=== PATIENT | female | born 1975 | race Caucasian/White ===

== ENCOUNTER 2024-06-08 07:57 | Day surgery (SDC) | payer MEDICAID, SELFPAY ==
--- NOTE | 2024-06-06 18:18 | PCM.HP.BLA ---
History and Physical Date of Admission: 06/08/24 HPI: The patient is a 48 year old female presenting for pre-operative visit. She is scheduled for Hysteroscopy D&C and possible polyp resection, for postmenopausal bleeding and thickened endometrium on pelvic ultrasound on 06/08/24. Procedure discussed along with risks, benefits and complications. Other alternatives discussed for management. Consent form signed? Yes. PAST MEDICAL HISTORY PAST MEDICAL HISTORY Diagnosis Date ? Chronic anticoagulation ? Chronic pain syndrome ? Clotting disorder (HCC) ? COPD (chronic obstructive pulmonary disease) (HCC) ? DUENAS (dyspnea on exertion) ? GERD (gastroesophageal reflux disease) ? History of atrial fibrillation ? History of pulmonary embolism 2017 ? History of pulmonary embolism 2019 ? History of pulmonary hypertension 2016 On ambrisentan for 4 years and off for 2 years ? History of respiratory failure 2017 was on supplemental oxygen for a few years ? HTN (hypertension) ? Hypermobility arthralgia ? Lupus (HCC) ? Marijuana use Takes it orally ? Nephrolithiasis ? Obesity ? UMESH (obstructive sleep apnea) ? Scleroderma (HCC) 2019 ? Syncope and collapse PAST SURGICAL HISTORY PAST SURGICAL HISTORY Procedure Laterality Date ? LAPAROSCOPIC TUBAL LIGATION/RING/CLIP 01/29/2008 ? PAST SURGICAL HISTORY OF 4 c-sections ? PAST SURGICAL HISTORY OF exploratory surgery ? PAST SURGICAL HISTORY OF removal of 2 cysts on bilateral ovaries ? THERMAL ENDOMETRIAL ABLATION 01/29/2008 ? TONSILLECTOMY & ADENOIDECTOMY <AGE 10 CURRENT MEDICATIONS Current Outpatient Medications Medication Sig Dispense Refill ? phenazopyridine (PYRIDIUM) 200 mg tablet Take 200 mg by mouth. ? fluticasone (FLONASE) 50 mcg/actuation nasal spray Use 2 Sprays in the nose. ? lidocaine (SALONPAS) 4 % patch Apply 1 Patch as directed every 24 hours. ? miconazole 2 % powder Apply 1 application to affected area as needed (rash). 85 g 1 ? estradiol (ESTRACE) 0.01 % (0.1 mg/gram) vaginal cream Use 1 g vaginally two times a week. 42.5 g 1 ? CPAP/BIPAP/OTHER Type .CPAPSettings into a note to see current settings/supplies/DME information. 1 Each 0 ? GLUTAMINE ORAL Take 500 mg by mouth two times a day. ? multivitamin (VITAMIN DAILY ORAL) Take 5,000 Units by mouth once daily. Vitamin d ? Magnesium 200 mg tab Take 225 mg by mouth two times a day. ? enzymes,digestive (DIGESTIVE ENZYMES ORAL) Take by mouth two times a day. ? docosahexaenoic acid/epa (FISH OIL ORAL) Take by mouth once daily. ? furosemide (LASIX) 40 mg tablet Take 1 tablet by mouth twice daily. ? spironolactone (ALDACTONE) 25 mg tablet Take 50 mg by mouth two times a day. ? potassium chloride 20 mEq TbER Take 1 tablet by mouth twice daily. ? dilTIAZem CD (CARTIA XT) 180 mg 24 hr capsule Take 1 capsule by mouth twice daily. ? tiZANidine (ZANAFLEX) 4 mg tablet three times a day. ? famotidine (PEPCID) 20 mg tablet Take 2 tablets by mouth daily at bedtime. ? omeprazole (PRILOSEC) 40 mg capsule once daily. ? hydrOXYzine pamoate (VISTARIL) 50 mg capsule once daily. ? DULoxetine (CYMBALTA) 60 mg capsule once daily. ? XARELTO 20 mg tablet once daily. ? metoprolol succinate ER (TOPROL XL) 25 mg 24 hr tablet Take 0.5 tablets by mouth once daily. ? prucalopride (MOTEGRITY) 2 mg tab tablet Take 2 mg by mouth once daily. bedtime ? quetiapine fumarate(SEROQUEL 25 MG TAB) Take 100 mg by mouth daily at bedtime. Pt takes two tablets at bedtime 0 ? gabapentin(NEURONTIN 100 MG CAP) Take three(3) capsules in a.m., three capsules at noon; and 6 capsules at night. (Patient taking differently: Take 400 mg by mouth three times a day. Pt taking 2 400 mg tablets three times a day) 180 0 ? metoclopramide HCl (REGLAN) 10 mg tablet Take 1 tablet 4 times a day by oral route. ? melatonin 10 mg cap Take 10 mg by mouth at bedtime as needed. ? melatonin 10 mg cap Take 1 capsule by mouth once daily. No current facility-administered medications for this visit. ALLERGIES: Cortisolv [[id number]-Sjx-Krjda] and Morphine PERSONAL HISTORY: SOCIAL HISTORY Social History Tobacco Use ? Smoking status: Never Passive exposure: Current ? Smokeless tobacco: Never ? Tobacco comments: Family of 4-chain smokers in home. Substance Use Topics ? Alcohol use: Not Currently ? Drug use: Yes Types: Marijuana Comment: medical FAMILY HISTORY: FAMILY HISTORY FAMILY HISTORY Problem Relation Age of Onset ? Diabetes Maternal Grandmother ? Arthritis Paternal Grandmother Rheumatoid arthritis REVIEW OF SYMPTOMS: GENERAL: denies fevers or chills ENDOCRINOLOGY: has not been on steroids Cardiology : denies palpitations or chest pain Respiratory: denies SOB or cough Hematology: denies history of prolonged bleeding or easy bruising or VTE Allergy: Denies history of personal or family history of allergy to anesthesia PHYSICAL EXAMINATION: VITALS: Blood pressure 120/70, weight 92.1 kg (203 lb), last menstrual period 01/29/2008. GENERAL: The patient is well nourished, well hydrated in no acute distress. , The patient is oriented to time, place, and person. NECK: Supple. No lynphadenopathy, normal thyroid, no thyromegaly. LUNGS: Clear to auscultation bilaterally. no wheezes, rhonchi or rales HEART: Regular rate and rhythm, Normal heart sounds, and No murmurs or gallops Pelvic US 04/27/24: Normal appearing anteverted uterus that measures 68 mm x 33 mm x 36 mm. Heterogeneous myometrium. 3D and tranverse views demonstrate a septate endometrial contour. Less likely, the endometrium could be splayed due to incomplete coverage at endometrial ablation. Endometrium measures 1.5 mm on right and 1.9 mm on left. Both ovaries are visualized and appear normal. No adnexal masses were observed. There is no free fluid visualized in the peritoneal cavity. Recommendations Recommend hysteroscopy with video-directed D&C to sample each endometrial cavity due to low reliability of endometrial sampling in this situation. IMPRESSION: PMB, thickenened endometrium on pelvic US, complex medical history, on anticoagulation PLAN: The risks/benefits/alternatives and personal involved for the planned hysteroscopy D&C with possible polyp resection were reviewed with the patient. Her questions were answered to her satisfaction and she desires to proceed. Consent was signed. I reviewed with her postop instructions and expectations. I have reviewed and updated past medical and surgical history, medications and allergies This h&p was completed in my office on 05/26/24
[2024-06-08] VITALS (9 sets, daily range): BP systolic 113–142; BP diastolic 72–84; PULSE 66–88; RESP 12–18; TEMP 36.3–36.9; O2SAT 91–97; BMI 38.0
--- NOTE | 2024-06-08 | EMB_PTH ---
PATIENT: BARBIE ANTHONY [place] [facility] [id number] AGE/SX: 48/F ROOM: RE06/08/[address]: Dr. Maryam Live MD : 1975 BED: DIS: 06/08/2024 SPEC #: [id number] RECD: 06/08/24 13:12 STATUS: MARTELL LORIE #: [id number] WILBER: 06/08/24 00:[address]: Maryam Live DEPT: SURGICAL PATHOLOGY RECD BY: Cale Quigley Tissues: Endometrium, NOS Procedures: Surgery Specimen Level IV HEADER OPERATION: Hysteroscopy, D&C PRE-OP DIAGNOSIS: Post menopausal bleeding thickened endometrium on pelvic ultrasound, complex medical history, on anticoagulation TISSUE SUBMITTED: Endometrial curettings MICROSCOPIC DIAGNOSIS Endometrium, curettings: Scant strips of benign superficial glandular and squamous mucosa. AM 06/09/2024 MICROSCOPIC DESCRIPTION Slides are reviewed. GROSS DESCRIPTION Received in fixative is one container labeled with the patient's name and designated Endometrial curettings. The specimen consists of multiple irregular fragments of hemorrhagic soft tissue that in aggregate measure 1.5 x 0.5 x <0.1 cm. The specimen is totally submitted in one cassette. 06/08/2024 TC:5 CPT:37977
[2024-06-08 08:26] LABS: Internal QC Validated? YES +Cl - CLEAR BKGD; Pregnancy, Urine Negative Negative
[2024-06-08 08:27] LABS: Record Kit Lot#,Urine Preg 869294
[2024-06-08] MEDS: Acetaminophen 500 MG Tablet 1000 MG PO (08:47)
[2024-06-08 08:53] LABS: Hematocrit 35.8 % (37-47); Hemoglobin 11.9 g/dL (12.0-15.0); Mean Corp Hgb Conc 33.2 g/dL (32-36); Mean Corpuscular Hgb 29.8 pg (27.0-32.0); Mean Corpuscular Volume 89.7 fL (81-99); Mean Platelet Vol. 9.8 fl (6.2-12.0); Platelet Count 327 K/mm3 (150-450); RBC Distribution Width CV 14.2 % (11.6-14.6); RBC Distribution Width SD 46.6 fl (35.1-43.9); Red Blood Count 3.99 M/mm3 (4.2-5.4)
--- NOTE | 2024-06-08 08:55 | PCM.PRE.AN2 ---
ASA Classification* ASA Classification ASA Classification: 2 Assessment & Plan Anesthesia* Anesthesia Assessment Anesthesia Assessment: Discussed sedation and/or anesthesia options, risks, benefits, and alternatives with patient/parents/legal guardian/POA. Questions invited. The patient/parents/legal guardian/POA seems to understand and agrees to proceed with anesthesia plan. Reviewed the physical assessment, medical history, allergy history and patient home medications list prior to surgery/procedure/anesthetic and documented any changes. Performed airway and anesthesia risk assessments. Anesthesia Type Anesthesia Type: MAC Anesthesia Focused Assessment* Temperature: 97.3 F Pulse Rate: 66 Blood Pressure: 113/79 Respiratory Rate: 12 Pulse Ox: 97 Airway Assessment Mouth opens: >3 cm Mallampati Score: II Focused Labs Anesthesia Preop lab: CBC WBC 6.0 K/mm3 (4.4-11.0) 06/08/24 08:40 RBC 3.99 M/mm3 (4.2-5.4) L 06/08/24 08:40 Hgb 11.9 g/dL (12.0-15.0) L 06/08/24 08:40 Hct 35.8 % (37-47) L 06/08/24 08:40 Plt Count 327 K/mm3 (150-450) 06/08/24 08:40 CHEMISTRY Potassium Pending 06/08/24 08:40 Sodium Pending 06/08/24 08:40 BUN Pending 06/08/24 08:40 Creatinine Pending 06/08/24 08:40 Glucose Pending 06/08/24 08:40 COAG Urine Test Negative Negative 06/08/24 08:15 Pre-Assessment Diagnosis/Proposed Procedure Planned Operative Procedure(s): HYSTEROSCOPY D&C WITH POSS RESECTION Anesthesia History Anesthesia History - heating and air conditioning mechanic: Anesthesia History - heating and air conditioning mechanic Hx Hospitalization Yes: 04/2024 FOR KIDNEY 06/05/24 09:25 INFECTION Any Problems With Anesthesia No 06/05/24 09:25 Cholinesterase deficiency No 06/05/24 09:25 You/Your Family Experience No 06/05/24 09:25 fever (hyperthermia) with Relationship Recent Exposure to Contagious No 06/08/24 08:42 Disease Does patient have nerve No 06/05/24 09:25 stimulator Patient instructed to have device shut off --Does patient have Pacemaker No 06/08/24 08:42 or ICD? When Was Last Pacemaker Check QUESTION #4 FULL TEXT: You/Your Family Experience fever (hyperthermia) with Anesthesia Last Oral Intake Last Oral intake: Last Oral Intake NPO since 21:00 06/08/24 08:42 Meds taken in AM with sips of No 06/08/24 08:42 water? Meds patient instructed to take am of surgery PONV PONV - heating and air conditioning mechanic: PONV - heating and air conditioning mechanic Female Yes 06/05/24 09:25 HX of Motion Sickness No 06/05/24 09:25 HX of N/V After Surgery No 06/05/24 09:25 Non-Smoker Yes 06/05/24 09:25 Duration of Surgery greater No 06/05/24 09:25 than 60 minutes Number of Risk Factors 2 06/05/24 09:25 PONV Score Moderate Risk 06/05/24 09:25 Height & Weight Height & Weight: Anesthesia: Height & Weight Height 5 ft 1 in 06/08/24 08:42 Weight: 91.2 kg 06/08/24 08:42 Body Mass Index (BMI) 38.0 06/08/24 08:42 Respiratory Assessment Respiratory Assessment - heating and air conditioning mechanic: Respiratory Tract Infection Hx - heating and air conditioning mechanic Hx Respiratory Tract Infection No 06/05/24 09:25 STOP Sleep Apnea STOP Sleep Apnea - heating and air conditioning mechanic: STOP Sleep Apnea - heating and air conditioning mechanic Hx Hypertension Yes: CONTROLLED WITH MED/ 06/05/24 09:25 HYPOTENSION Hx Sleep Apnea Yes 06/05/24 09:25 CPAP No 06/05/24 09:25 BIPAP Yes 06/05/24 09:25 Do you snore loudly (louder than talking or can be heard Do you often feel tired/ fatigued/ sleepy during daytime? Has anyone observed you stop breathing during sleep? STOP Results Positive 06/05/24 09:25 QUESTION #5 FULL TEXT : Do you snore loudly (louder than talking or can be heard through closed doors)? Tobacco Use History Tobacco Use History - heating and air conditioning mechanic: Tobacco Use History - heating and air conditioning mechanic Tobacco Use Smoking Status Never smoker 06/05/24 09:25 Hx Tobacco Use No 06/05/24 09:25 Years Smoking Packs Smoked per Day Smoking Cessation Date was within the last 15 years Hx Smoking Cessation Date Hx Smoking Cessation Counseling Hematologic Medial History Hematologic Hx - heating and air conditioning mechanic: Hematologic Medical Hx - photovoltaic technician Hx of Blood Transfusion Yes 06/05/24 09:25 Hx of Transfusion in last 3 No 06/05/24 09:25 Months Date of Last Transfusion (if within last 3 months) Ever experience any problems No 06/05/24 09:25 with transfusion(s)? Specify any problems Hx of Preganancy in last 3 No 06/05/24 09:25 Months Nurse Filling Out Transfusion DSCHRIBER 06/05/24 09:25 & Questions: Date: 06/05/24 06/05/24 09:25 Time: 09:28 06/05/24 09:25 Patient unable to answer at this time (ie. confused, unrespo /Reproduction History /Reproductive History - heating and air conditioning mechanic: /Reproductive Hx- heating and air conditioning mechanic Hx Now No 06/05/24 09:25 Gestational Age (in weeks): EDC: Hx Hx Para Hx Section SAB No 06/05/24 09:25 Active Medications Active Medications: Current Medications Generic Name Dose Route Start Last Admin Trade Name Freq PRN Reason Stop Dose Admin Acetaminophen 1,000 mg 06/08/24 09:20 06/08/24 08:47 Acetaminophen 500 Mg Tablet PO 06/08/24 09:21 1,000 mg PREOP ONE Administration PFS Medical History Scleroderma of esophagus PTSD (post-traumatic stress disorder) Depression Anxiety Marijuana use Thyroid disease Arthritis Bladder disease Nephrosis Anemia Easy bruising Restless legs Back pain Migraine headache Injury of head and neck Stroke/cerebrovascular accident Lupus Adonis-Danlos syndrome Syncope Blackout Difficulty swallowing History of hiatal hernia History of IBS History of diverticulitis Gastric reflux Non-smoker BiPAP (biphasic positive airway pressure) dependence Shortness of breath on exertion Leg cramps History of pain when walking Hypertension History of Holter monitoring History of echocardiogram History of stress test Cardiology follow-up encounter History of CHF (congestive heart failure) History of irregular heartbeat Pulmonary embolism Chest pain Home Medications ?Medication ?Instructions ?Recorded ?Last Taken ?Type MARSHMELLOW ROOT 1,300 mg PO DAILY 06/05/24 Unknown History cholecalciferol (vitamin D3) 50 50 mcg PO DAILY 06/05/24 Unknown History mcg (2,000 unit) tablet (Vitamin D3) diltiazem HCl 180 mg 180 mg PO BID 06/05/24 Unknown History capsule,extended release 24 hr duloxetine 60 mg capsule,delayed 60 mg PO QHS 06/05/24 Unknown History release furosemide 40 mg tablet 40 mg PO BID 06/05/24 Unknown History gabapentin 800 mg tablet 800 mg PO TID 06/05/24 Unknown History glutamine 500 mg capsule 500 mg PO BID 06/05/24 Unknown History metoprolol succinate 25 mg 12.5 mg PO QHS 06/05/24 06/06/24 History tablet,extended release 24 hr midodrine 10 mg tablet 20 mg PO QHS 06/05/24 Unknown History omeprazole 40 mg capsule,delayed 40 mg PO QHS 06/05/24 Unknown History release potassium chloride 20 mEq 20 meq PO BID 06/05/24 Unknown History tablet,extended release promethazine 25 mg tablet 25 mg PO Q8H PRN PRN nausea and 06/05/24 Unknown History vomiting prucalopride 2 mg tablet 2 mg PO QHS 06/05/24 Unknown History (Motegrity) quetiapine 100 mg tablet 100 mg PO BID 06/05/24 Unknown History rivaroxaban 20 mg tablet (Xarelto) 20 mg PO QHS 06/05/24 06/06/24 History spironolactone 50 mg tablet 50 mg PO BID 06/05/24 Unknown History tizanidine 4 mg tablet 8 mg PO BID 06/05/24 Unknown History turmeric 450 mg-turmeric root 2 cap PO BID 06/05/24 Unknown History extract 50 mg capsule Allergy/AdvReac Type Severity Reaction Status Date / Time cortisone Allergy Intermediate Swelling Verified 06/08/24 08:39 adhesive tape AdvReac Intermediate Rash Verified 06/08/24 08:39 corn AdvReac Intermediate Nausea/Vom/ Verified 06/08/24 08:39 Diarrhea Surgical History History of cardiac catheterization Hx of surgical procedure Hx of colonoscopy History of esophagogastroduodenoscopy (EGD) Hx of lithotripsy Hx laparoscopic cholecystectomy History of tonsillectomy Hx of exploratory laparotomy History of Social History Smoking Status: Never smoker Review of Systems (Anesthesia) ROS Narrative System reviewed and no additional complaints, except as documented.
[2024-06-08 09:09] LABS: ALB/GLOB Ratio 1.2 RATIO (0.9-2.4); AST(SGOT) 12 U/L (15-37); Alanine Aminotransfer ALT/SGPT 26 U/L (13-56); Albumin, Serum 4.1 g/dL (3.2-5.0); Alkaline Phosphatase 78 U/L (45-117); Anion Gap 9 (5-15); BUN 22 mg/dL (7-18); BUN/Creat Ratio 20.6 RATIO (10-20); Chloride 104 mmol/L (98-107); Creatinine, Serum 1.07 mg/dL (0.55-1.02); EST Glomerular Filtration Rate 58 mL/min (>60); Est Glom Filt Rate - Afr Amer 70 mL/min (>60); Globulin 3.5 g/dL (2.2-4.2); Glucose 104 mg/dL (74-106); Potassium 3.9 mmol/L (3.5-5.1); Protein, Total 7.6 g/dL (6.4-8.2); Sodium Level 137 mmol/L (136-145)
[2024-06-08] MEDS: Vasopressin 20 UNITS/ML Vial (11:03)
--- NOTE | 2024-06-08 11:27 | OP.PCM_ITS ---
Report of Operation Date of Procedure: 06/08/24 Pre-Operative Diagnosis: PMB, thickened endoemtrium on US Post-Operative Diagnosis: same Surgery/Procedure Performed:: Hysteroscopsy D&C Description of Surgical Findings:: normal cervix and vagina, no endoemtrial masses noted Surgeon: Maryam Live digital marketing intern: Julianne Gu MS4 Type of Anesthesia: MAC Anesthesiologist: Suzan Burgos Special Medications: none Specimen's removed: endoemtrial curettings Drains: none Estimated Blood Loss (mL): 10 Fluids Replaced: 0 Description of Procedure: The patient was taken to the OR where she was prepped and draped in dorsal lithotomy position. The weighted speculum was placed in the vagina and the anterior lip of the cervix was grasped with a single-tooth tenaculum. A para cervical block was administered with 5 units of vasopressin diluted in normal saline. The cervix was dilated serially with Hegar dilators. 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 It was this versus a false track. However did appear to be a tubal ostia at the end. Clinically I would say I was in the left horn of the uterus. Despite several attempts at redilation and repositioning the camera pinching off the cervix with a tenaculum so the fluid leak and visualization clear back to the external cervical os I could not find another track to enter the other horn of the uterus. A gentle sharp curettage was done of the form that I was in. There were no focal findings and it appeared atrophic. The hysteroscope was removed. The instruments were removed from the vagina. The specimen was handed off and sent to pathology. All sponge and needle counts were correct. Vaginal sweep was performed by me. The patient was awakened and taken to the recovery room in stable condition. I performed the entire procedure with assistance. The learning and development assistant provided some tissue retraction during the procedure. Calculated fluid deficit was 200 cc of normal saline Grafts/Implants Used: none Procedure Start Time: 11:03 Procedure Stop Time: 11:21 Complications none Admit VTE Documentation VTE Present on Admission: No VTE Mechan Device Prophylaxis: SCD's VTE Pharm Prophylaxis ordered?: No Reason prophylaxis not ordered:: Procedure Not Indicated
--- NOTE | 2024-06-08 11:34 | PCM.POST.ANE ---
Anesthesia: Postop Eval I Current Vital Signs Temperature: 97.5 F Pulse Rate: 88 Blood Pressure: 141/84 Respiratory Rate: 18 Pulse Ox: 93 Assessment Airway patent: Yes Spontaneous unlabored respirations: Yes nausea: No Vomiting: No Anesthesia Complication: No Fluid Hydration Crystalloid volume administer (ml): 10 Total IV fluid infused: 10 Progress Note Anesthesia document: Postop Eval 1 completed: Yes
--- NOTE | 2024-06-08 12:13 | POSTOPAN2_ITS ---
Anesthesia Postop Eval I Sum Postop Eval Completion status Anesthesia document: Postop Eval 1 completed: Yes Anesthesia Postop Eval I Summary Anesthesia Postop Eval I Summary: Anesthesia Postop Eval I: Assessment Summary Airway patent Yes 06/08/24 11:34 OUTBOUND SALES REPRESENTATIVE.CSIR Spontaneous unlabored Yes 06/08/24 11:34 OUTBOUND SALES REPRESENTATIVE.CSIR respirations Mental status nausea No 06/08/24 11:34 OUTBOUND SALES REPRESENTATIVE.CSIR Vomiting No 06/08/24 11:34 OUTBOUND SALES REPRESENTATIVE.CSIR Anesthesia Postop Eval I: Fluid Summary Crystalloid volume administer 10 06/08/24 11:34 OUTBOUND SALES REPRESENTATIVE.CSIR (ml) Colloids volume administered ( ml) Blood Product volume administered (ml) Total IV fluid infused 10 06/08/24 11:34 OUTBOUND SALES REPRESENTATIVE.CSIR Anesthesia Postop Eval I: Summary Notes Anesthesia Complication No 06/08/24 11:34 OUTBOUND SALES REPRESENTATIVE.CSIR Anesthesia Complication Comment: Post-operative progress note Anesthesia: Postop Eval II Evaluation Mental status: Awake Pain Level: 0 nausea: No Vomiting: No
--- NOTE | 2024-06-08 12:13 | PCM.POSTANE2 ---
Anesthesia Postop Eval I Sum Postop Eval Completion status Anesthesia document: Postop Eval 1 completed: Yes Anesthesia Postop Eval I Summary Anesthesia Postop Eval I Summary: Anesthesia Postop Eval I: Assessment Summary Airway patent Yes 06/08/24 11:34 NURSE WOUND CARE.CSIR Spontaneous unlabored Yes 06/08/24 11:34 NURSE WOUND CARE.CSIR respirations Mental status nausea No 06/08/24 11:34 NURSE WOUND CARE.CSIR Vomiting No 06/08/24 11:34 NURSE WOUND CARE.CSIR Anesthesia Postop Eval I: Fluid Summary Crystalloid volume administer 10 06/08/24 11:34 NURSE WOUND CARE.CSIR (ml) Colloids volume administered ( ml) Blood Product volume administered (ml) Total IV fluid infused 10 06/08/24 11:34 NURSE WOUND CARE.CSIR Anesthesia Postop Eval I: Summary Notes Anesthesia Complication No 06/08/24 11:34 NURSE WOUND CARE.CSIR Anesthesia Complication Comment: Post-operative progress note Anesthesia: Postop Eval II Evaluation Mental status: Awake Pain Level: 0 nausea: No Vomiting: No
--- NOTE | 2024-06-08 12:30 | DCINST_ITS ---
Discharge Instructions Diet Discharge Diet: No restrictions Activity Return to work on:: 06/12/24 May resume sexual activity in: 2 weeks Lifting Restrictions: none Dressing / Incision Call your doctor if your incision/area has: Sudden Increased Bleeding and Foul Smelling Discharge Call your doctor if you observe: Fever of 101 or Higher and Using more than 1 pad per hour (for 2 hrs in a row) Follow Up Care Please Follow Up With: Maryam Live MD When: 2-4 weeks or as needed. Call [phone] to make an appointment or with any concerns. Test Results: Test results from this visit will be discussed in further detail at your follow- up appointment, if applicable. Discharge Plan Admission Primary Reason for Your Visit: hysteroscopy D&C Attending Provider: Maryam Live Primary Care Provider: STEPHANY GILES Instructions Print Language: Sinhala Discharge Orders/Prescriptions Prescriptions: No Action promethazine 25 mg tablet 25 mg PO Q8H PRN PRN (Reason: nausea and vomiting) furosemide 40 mg tablet 40 mg PO BID spironolactone 50 mg tablet 50 mg PO BID potassium chloride 20 mEq tablet extended release 20 meq PO BID diltiazem HCl 180 mg capsule,extended release 24hr 180 mg PO BID tizanidine 4 mg tablet 8 mg PO BID midodrine 10 mg tablet 20 mg PO QHS Rx Instructions: do not give last dose of day after 6PM or within 4 hrs of bedtime gabapentin 800 mg tablet 800 mg PO TID quetiapine 100 mg tablet 100 mg PO BID duloxetine 60 mg capsule,delayed release(DR/EC) 60 mg PO QHS Xarelto 20 mg tablet 20 mg PO QHS metoprolol succinate 25 mg tablet extended release 24 hr 12.5 mg PO QHS omeprazole 40 mg capsule,delayed release(DR/EC) 40 mg PO QHS Motegrity 2 mg tablet 2 mg PO QHS cholecalciferol (vitamin D3) [Vitamin D3] 50 mcg (2,000 unit) tablet 50 mcg PO DAILY MARSHMELLOW ROOT 1,300 mg PO DAILY glutamine 500 mg capsule 500 mg PO BID turmeric-turmeric root extract 450-50 mg capsule 2 cap PO BID Disposition Disposition (needs filled in before D/C Order can be placed): Home, Self Care
== END 2024-06-08 12:42 | disposition home or self-care (01) ==
LOC: SDC 07:58 → AC 08:00
PROVIDERS: Referring Provider Obstetrics & Gynecology; Visit Provider Obstetrics & Gynecology
PROC: 0UB98ZZ Excision of Uterus, Via Natural or Artificial Opening Endoscopic (ICD-10-PCS; CPT 58558; principal; 2024-06-08 09:50)
DX: N95.0 Postmenopausal bleeding (principal); J44.9 Chronic obstructive pulmonary disease, unspecified; I10 Essential (primary) hypertension; G47.33 Obstructive sleep apnea (adult) (pediatric); F41.9 Anxiety disorder, unspecified; F32.A Depression, unspecified; K21.9 Gastro-esophageal reflux disease without esophagitis; Z79.01 Long term (current) use of anticoagulants; Z79.899 Other long term (current) drug therapy; Z86.711 Personal history of pulmonary embolism
CPT/HCPCS: 58558; 00952; J3490; 80053; 81025; 85027; 88305; A4216; J2405